=== PATIENT | male | born 1975 | race Caucasian/White ===

== ENCOUNTER 2018-11-30 23:59 | Emergency (ER) | payer OTHER ==
[~2018-11-30] VITALS: Ht 160 cm; Wt 63.0 kg
[2018-12-01 00:04] VITALS: BP 150/87
--- NOTE | 2018-12-01 00:13 | NUR ---
pt ambulated to bed #7
--- NOTE | 2018-12-01 00:22 | NUR ---
PT CAME TO ER C/O OF TOOTHEACHE X 2 DAYS. PT SAW THE DENTIST 11/30/18 AND WAS PRESCRIBED IBUPROFEN AND AMOXICILLIN. PT HAS APPOINTMENT FOR ROOT CANAL ON 12/03/18. LAST DOSE OF IBUPROFEN WAS 4PM. PT PAIN LEVEL 10/10 ACHING. NO MED HX. SAFETY MEASURES IN PLACE. WAITING FOR ERMD TO EVALUATE PT.
--- NOTE | 2018-12-01 01:21 | NUR ---
PT RESTING IN BED COMFORTABLY WITH FAMILY AT BEDSIDE.
--- NOTE | 2018-12-01 01:48 | NUR ---
ERMD AT BEDSIDE
[2018-12-01] MEDS ORDERED: ACETAMINOPHEN 325 MG TAB PO ONE (02:10)
[2018-12-01] MEDS ORDERED: KETOROLAC 30 MG/ML VIAL IM ONE (02:10)
--- NOTE | 2018-12-01 02:43 | NUR ---
Patient discharged with v/s stable. Written and verbal after care instructions given and explained. Patient verbalized understanding. Ambulatory with steady gait. All questions addressed prior to discharge. Advised to follow up with dentist.
[2018-12-01 02:44] VITALS: BP 126/74
== END 2018-12-01 02:44 | disposition home or self-care (01) ==
LOC: MED 23:59
DX: K08.89 Other specified disorders of teeth and supporting structures (principal); Z87.39 Personal history of other diseases of the musculoskeletal system and connective tissue
CPT/HCPCS: 96372; 99283; J1885

== ENCOUNTER 2023-07-13 20:09 | Emergency (ER) | payer MEDICAID, OTHER ==
[~2023-07-13] VITALS: Ht 157.5 cm; Wt 63.5 kg
[~2023-07-13 20:09] MED LIST: NALO4SPR NS
[2023-07-13 20:28] VITALS: BP 144/82; PULSE 110; RESP 18; TEMP 98; O2SAT 97
[2023-07-13] MEDS ORDERED: NAPR-54 PO (22:11)
[2023-07-13 22:15] VITALS: BP 144/82; PULSE 110; RESP 18; TEMP 98; O2SAT 97
== END 2023-07-13 22:15 | disposition home or self-care (01) ==
LOC: MED 20:09
DX: K40.90 Unilateral inguinal hernia, without obstruction or gangrene, not specified as recurrent (principal); Z79.899 Other long term (current) drug therapy
CPT/HCPCS: 99281